=== PATIENT | male | born 1940 | race Caucasian/White ===

== ENCOUNTER 2017-05-30 20:13 | Inpatient (IN) | payer OTHER, MEDICARE ==
[~2017-05-30] VITALS: Ht 162.6 cm; Wt 72.9 kg
--- NOTE | ~2017-05-30 | P ---
[facility] [place] [address] PROCEDURE REPORT Name: ERI GIRON JR Room #: 351-P ADM IN M.R.#: [id number] Admission: 05/30/17 Attend Phys: Eri Wilcox DO Discharge: Date of : 39 Report #: [id number] THIS REPORT FOR: //name// CC: Mathieu Torres DATE OF SERVICE: 06/01/2017 PROCEDURE PERFORMED: Flexible sigmoidoscopy. HISTORY OF PRESENT ILLNESS: The patient is a 77-year-old male with GI bleed, presented to [facility] initially with bright red blood per rectum. He had a colonoscopy done at that center, which showed a significant amount of fresh blood and clot of blood throughout the colon. No active bleeding was seen. His hemoglobin was 7.2 at the time of admission here on transfer. He has now received a total of 2 units of packed cells here yesterday. His hemoglobin at this time most recently was 7.9 at 12:10 today. He has had signs of recurrent bleeding. Yesterday, the patient underwent a CT arteriogram, which showed no evidence of active bleeding. A nuclear medicine bleeding scan was then performed. The initial scan was negative for any active bleeding; however, in an addendum bleeding site appears to be in the distal transverse colon or splenic flexure region. Therefore, plan is to perform a flexible sigmoidoscopy today. The patient was given several enemas on the floor. DESCRIPTION OF PROCEDURE: The risks and benefits of the procedure were explained to the patient and his family, those risks including but not limited to bleeding, perforation and the risk of sedation. They understood these risks and gave informed consent. Sedation was given using propofol per anesthesia. Next, a digital rectal exam was initially performed, which was normal. Next, using a standard Fujinon colonoscope, the scope was placed in the patient's anus and advanced under direct vision into the transverse colon. The overall prep was poor in most areas. Multiple washings and aspirations were performed. There was a mix of bright red blood and some old blood throughout the left colon with multiple diverticula noted throughout this region. When the scope was advanced into the transverse colon, only old dark black blood was noted. I spent approximately 30-45 minutes washing the splenic flexure area as well as the left colon. There was no active bleeding, but again there were signs of bright red blood in this area. Again, I spent long period of time looking at multiple diverticula within this region. There was no active bleeding from a single diverticulum noted. At this point, the scope was slowly withdrawn. The rectal mucosa was normal. The scope was then withdrawn and the procedure terminated. The patient tolerated the procedure well. [address] [address] PROCEDURE REPORT Name: ERI GIRON JR Room #: 351-P [facility] IN .R.#: [id number] Admission: 05/30/17 Attend Phys: Eri Wilcox DO Discharge: Date of : 39 Report #: [id number] IMPRESSION: Recurrent gastrointestinal bleed likely secondary to a diverticular bleed near the splenic flexure area. Multiple diverticula were noted throughout this entire segment again despite spending a large amount of time with multiple washings and aspirations, the actual bleeding site was not seen. It appears it may have stopped or slowed dramatically at this point. I then had a long discussion with the patient's daughter. The plan at this point is to observe the patient closely. If he has signs of significant active rebleed, then Dr. Hatch, Interventional Radiology, may be involved with an arteriogram at that point. In the meantime, we will start clear liquids and continue to monitor his hemoglobin closely. Thank you for allowing me to participate in his care. <ELECTRONICALLY SIGNED> By: Henrry Mccormick MD 06/02/17 2110 1515 0455 Henrry Mccormick MD /nt
--- NOTE | ~2017-05-30 | HC ---
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 He was noted to have significant bloody stools with acute blood loss anemia and drop in hemoglobin. He underwent flexible sigmoidoscopy, which revealed a likely diverticular bleed. He has been monitored regarding hypokalemia as well as his history of hypertension. He does have a probable underlying dementia, was seen by Neurology and is actually in the process of an outpatient neurologic evaluation through the [facility]. He apparently had an EEG and brain MRI completed and the plan is for neuropsych testing on 06/25/2017. The patient is noted to have medical complexity with generalized debilitation. We are seeing him in rehabilitation medicine consultation. Cardiology is involved as well and they are monitoring regarding his hypertension and is on statin therapy for his hyperlipidemia. PAST MEDICAL HISTORY: Includes hyperlipidemia, hypertension, GERD. PAST SURGICAL HISTORY: Corneal transplants and retina repair. ALLERGIES: None. MEDICATIONS: Please see the full medication listing. 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 REVIEW OF SYSTEMS: Did not offer any current complaints of chest pain, shortness of breath, abdominal discomfort. No focal extremity pain complaints. PHYSICAL EXAMINATION: GENERAL: The patient is a pleasant 77-year-old white male, in no obvious distress. VITAL SIGNS: Last recorded temperature is 98.6, pulse 74, respirations 18, blood pressure 163/89. NEUROLOGIC: The patient is alert, he follows basic 1 step commands. There is some latency to his responses. Facies are symmetric. He has functional range of motion of both upper extremities with strength grade 4-/5. DTRs are trace to 1. Lower extremities, no focal calf swelling, functional range of motion with strength grade 4-/5. DTRs are trace to 1. [address] [address] CONSULTATION Name: ERI GIRON JR Room #: 351-P [facility] IN [facility].#: [id number] Admission: 05/30/17 Attend Phys: Eri Wilcox DO Discharge: 06/05/17 Date of : 39 Report #: [id number] ASSESSMENT: A 77-year-old white male with the following problem list: 1. Medical complexity with generalized debilitation. 2. Hematochezia with acute blood loss anemia. 3. Likely diverticular bleed. 4. Hypokalemia. 5. Hypertension. 6. Hyperlipidemia. 7. Probable underlying dementia with outpatient neurologic evaluation currently in process. PLAN: Therapies to evaluate. We will be glad to assist regarding rehab therapy needs and we will follow along to see how he does with the therapy evaluations. <ELECTRONICALLY SIGNED> By: Mathieu Irby MD 06/08/17 1408 1044 2135 Mathieu Irby MD /nt
--- NOTE | ~2017-05-30 | H ---
[facility] [place] [address] HISTORY AND PHYSICAL Name: ERI GIRON JR Room #: 351-P ADM IN M.R.#: [id number] Admission: 05/30/17 Attend Phys: Eri Wilcox DO Discharge: Date of : 39 Report #: [id number] THIS REPORT FOR: //name// CC: Eri Cm ATTENDING PHYSICIAN: Dr. Stover. PRIMARY CARE PHYSICIAN: Dr. Ciro Cm. CHIEF COMPLAINT: Rectal bleeding. HISTORY OF PRESENT ILLNESS: The patient is a 77-year-old male who was initially admitted at [facility]. He had a few falls at home and has been reporting blood in his stools at least 8-9 times prior to his admission there. His initial hemoglobin was 10 on arrival. He ended up being seen by a surgeon there as no GI was available, and his colonoscopy showed large amount of blood mixed with clots throughout the entire colon, but no source of active bleeding was found. He did not have any further bowel movements since the colonoscopy. He has had a negative colonoscopy 5 years prior. He is not on any blood thinners. Today when he was up to go to the bathroom at [facility], he became very dizzy, and he was orthostatic with a blood pressure of 88/47. His hemoglobin has continued to drop despite no further episodes of bleeding. His hemoglobin trended down from 9 this morning to 8.4 to 7.2. It was at that point, they decided to go ahead and transfer him to the facility where he can be seen by GI. With his fall at home, he says he did hit his head, but he did not lose any consciousness. He has never had any GI bleeding problems in the past. PAST MEDICAL HISTORY: Hyperlipidemia, hypertension, GERD. PAST SURGICAL HISTORY: Corneal transplants and retina repair. ALLERGIES: None. HOME MEDICATIONS: Flomax 0.4 mg p.o. daily, Lipitor 80 mg p.o. daily, diltiazem 360 mg p.o. daily, lisinopril 20 mg p.o. daily, omeprazole 20 mg p.o. daily. SOCIAL HISTORY: The patient lives alone. He is normally independent and gets around using a walker. He denies any tobacco use. He does drink one alcoholic beverage per day, usually beer. FAMILY HISTORY: Significant for CVA, but no history of bleeding or clotting disorders. REVIEW OF SYSTEMS: His daughter states that she has noticed some recent confusion and feeling off balance, so he had an outpatient neurology evaluation that was done a few weeks ago. He did have an MRI of his brain as well as an [facility] [address] [place] [address] HISTORY AND PHYSICAL Name: ERI GIRON JR Room #: 351-P [facility] IN ..#: [id number] Admission: 05/30/17 Attend Phys: Eri Wilcox DO Discharge: Date of : 39 Report #: [id number] EEG, and she has not been called about those results, but they plan to follow up with Neurology next month. All other 12-point review of systems was reviewed with the patient, otherwise negative unless stated in the HPI. PHYSICAL EXAMINATION: GENERAL: The patient is an alert male, in no acute distress. VITAL SIGNS: Temperature is 99.7, heart rate 69, respirations 18, blood pressure 129/62, oxygen 99% on room air. HEENT: PERRLA. Sclerae are nonicteric. Conjunctivae are pale. Oral mucosa is pink and moist. NECK: Supple, no JVD noted. CARDIAC: Normal S1, S2. No murmurs, rubs or gallops. RESPIRATORY: Breath sounds are clear bilaterally. No wheezing or rhonchi. Breathing is nonlabored. ABDOMEN: Soft, round, nontender with positive bowel sounds. VASCULAR: No edema noted. Pedal pulses are 2+. NEUROLOGIC: The patient is alert and oriented x 3. Speech is clear. He is moving all extremities equally. No focal weakness noted. MUSCULOSKELETAL: He does have some right shoulder pain with arm raise and does have decreased range of motion, which he says is due to chronic pain. SKIN: Intact. No rashes or lesions. He is very pale. LABORATORY DATA AND DIAGNOSTICS: Blood work at [facility] showed a WBC of 8.0, hemoglobin 7.2 and platelets 267. Sodium 137, potassium 4.0, BUN 34, creatinine 1.0. Glucose 124. LFTs are within normal limits. INR is 1.0. UA, negative leukocyte esterase. Chest x-ray is negative. CT of the head is negative for acute findings. There was some mild right maxillary sinusitis. ASSESSMENT AND PLAN: 1. Hematochezia. The patient did undergo a colonoscopy, which did show a large amount of blood, but no active source of bleeding was found. He was sent here for further GI evaluation. He has not had any further episodes today post-colonoscopy. We will check serial H and H levels and transfuse blood if hemoglobin is less than 7. We will also order a tagged red blood cell scan in the morning. GI is consulted, type and screen. 2. Acute blood loss anemia. Check a stat H and H level now. Transfuse if hemoglobin is less than 7 and then follow serial H and H levels q.6 hours. 3. Hypertension. Blood pressure is stable. Hold home meds while gastrointestinal bleeding. 4. Hyperlipidemia. Hold home medications while n.p.o. 5. Code status: The patient is a full code. 6. Deep venous thrombosis prophylaxis, place sequential compression devices. [facility] [address] [place] [address] HISTORY AND PHYSICAL Name: ERI GIRON JR Room #: 351-P ADM IN .R.#: [id number] Admission: 05/30/17 Attend Phys: Eri Wilcox DO Discharge: Date of : 39 Report #: [id number] We will continue to follow the patient closely throughout the hospitalization and make changes based on clinical status. <ELECTRONICALLY SIGNED> By: SERGE Blount 06/04/17 0901 0632 0721 SERGE Blount /nt
[2017-05-30 22:40] VITALS: BP 121/49
[2017-05-30] MEDS ORDERED: LIPITOR80 MG PO (22:45)
[2017-05-30] MEDS ORDERED: DILTIAZEM ER360 MG PO (22:45)
[2017-05-30] MEDS ORDERED: OMEPRAZOLE 20 M20 M1 PO (22:46)
[2017-05-30] MEDS ORDERED: FLOMAX0.4 MG PO (22:46)
[2017-05-30] MEDS ORDERED: LISINOPRIL20 MG PO (22:47)
[2017-05-30 23:53] LABS: HEMATOCRIT 21.7 % (42.0-52.0); HEMOGLOBIN 7.4 gm/dL (14.0-18.0)
[2017-05-31] VITALS (8 sets, daily range): BP systolic 108–151; BP diastolic 58–86
[2017-05-31 06:36] LABS: HEMOGLOBIN 7.1 gm/dL (14.0-18.0)
[2017-05-31 16:09] LABS: HEMATOCRIT 23.2 % (42.0-52.0)
[2017-05-31 17:46] LABS: HEMATOCRIT 23.2 % (42.0-52.0); HEMOGLOBIN 7.8 gm/dL (14.0-18.0)
[2017-06-01 00:20] LABS: HEMATOCRIT 23.1 % (42.0-52.0); HEMOGLOBIN 7.9 gm/dL (14.0-18.0)
[2017-06-01 04:30] VITALS: BP 148/86
[2017-06-01 06:41] LABS: HEMATOCRIT 21.6 % (42.0-52.0); HEMOGLOBIN 7.4 gm/dL (14.0-18.0)
[2017-06-01 07:12] VITALS: BP 153/90
[2017-06-01 10:23] LABS: URINE BILIRUBIN NEGATIVE (Negative); URINE BLOOD NEGATIVE (Negative); URINE CLARITY CLEAR; URINE COLOR YELLOW; URINE GLUCOSE-RANDOM* NEGATIVE (Negative); URINE KETONES TRACE (Negative); URINE LEUKOCYTES-REFLEX NEGATIVE (Negative); URINE NITRITE-REFLEX NEGATIVE (Negative); URINE PROTEIN (DIPSTICK) NEGATIVE (Negative); URINE SPECIFIC GRAVITY 1.015 (1.005-1.035); URINE UROBILINOGEN 0.2 E.U./dl (0.2-1.0)
[2017-06-01 10:42] LABS: ALBUMIN 2.3 g/dL (3.4-5.0); CALCIUM 7.1 mg/dL (8.5-10.1); CREATININE 0.7 mg/dL (0.7-1.3); POTASSIUM 3.3 mmol/L (3.5-5.1); TOTAL BILIRUBIN 0.6 mg/dL (<0.1-1.0); TOTAL PROTEIN 4.1 g/dL (6.4-8.2)
[2017-06-01 11:12] LABS: TSH 0.54 uIU/mL (0.358-3.740)
[2017-06-01 11:45] VITALS: BP 146/89
[2017-06-01 12:19] LABS: HEMATOCRIT 22.5 % (42.0-52.0); HEMOGLOBIN 7.9 gm/dL (14.0-18.0)
[2017-06-01 15:37] VITALS: BP 166/64
[2017-06-01 19:00] LABS: HEMATOCRIT 22.7 % (42.0-52.0); HEMOGLOBIN 7.9 gm/dL (14.0-18.0)
[2017-06-01 19:14] VITALS: BP 166/94
[2017-06-01 23:50] VITALS: BP 172/87
[2017-06-02 03:20] VITALS: BP 169/83
[2017-06-02 06:37] LABS: BASOPHILS 0.3 % (0.0-2.0); EOSINOPHILS 7.2 % (0.0-3.0); HEMATOCRIT 20.9 % (42.0-52.0); HEMOGLOBIN 7.4 gm/dL (14.0-18.0); MCH 30.9 pg (26.0-34.0); MCHC 35.1 g/dL (28.0-37.0); MONOCYTES 8.7 % (1.0-8.0); PLATELET COUNT 205 thou/uL (150-400); POLYS 61.8 % (36.0-66.0); RBC 2.38 mil/uL (4.50-6.00); RDW 14.3 % (10.5-14.5); WBC 8.1 thou/uL (4.0-11.0)
[2017-06-02 06:50] LABS: CALCIUM 7.3 mg/dL (8.5-10.1); CREATININE 0.6 mg/dL (0.7-1.3)
[2017-06-02 06:53] LABS: POTASSIUM 2.9 mmol/L (3.5-5.1)
[2017-06-02 09:04] VITALS: BP 149/84
[2017-06-02 12:03] VITALS: BP 152/84
[2017-06-02 15:37] VITALS: BP 121/74
[2017-06-02 17:26] LABS: HEMATOCRIT 21.7 % (42.0-52.0); HEMOGLOBIN 7.5 gm/dL (14.0-18.0); MCH 30.7 pg (26.0-34.0); MCHC 34.7 g/dL (28.0-37.0); MCV 88.6 fL (80.0-100.0); RBC 2.45 mil/uL (4.50-6.00); RDW 14.6 % (10.5-14.5); WBC 7.3 thou/uL (4.0-11.0)
[2017-06-02 20:00] VITALS: BP 107/88
[2017-06-03 04:30] VITALS: BP 110/66
[2017-06-03 05:37] LABS: ABSOLUTE NEUTROPHILS 4.5 thou/uL (1.4-8.2); BASOPHILS 0.4 % (0.0-2.0); EOSINOPHILS 6.5 % (0.0-3.0); HEMATOCRIT 22.3 % (42.0-52.0); HEMOGLOBIN 7.7 gm/dL (14.0-18.0); LYMPHOCYTES 27.9 % (24.0-44.0); MCH 30.6 pg (26.0-34.0); MCHC 34.4 g/dL (28.0-37.0); MONOCYTES 8.7 % (1.0-8.0); PLATELET COUNT 243 thou/uL (150-400); POLYS 56.5 % (36.0-66.0); RBC 2.51 mil/uL (4.50-6.00); RDW 14.8 % (10.5-14.5); WBC 7.9 thou/uL (4.0-11.0)
[2017-06-03 05:48] LABS: CALCIUM 7.8 mg/dL (8.5-10.1); CREATININE 0.6 mg/dL (0.7-1.3); POTASSIUM 4.1 mmol/L (3.5-5.1)
[2017-06-03 08:18] VITALS: BP 158/95
[2017-06-03 11:40] VITALS: BP 142/71
[2017-06-03 17:23] VITALS: BP 135/72
[2017-06-03 20:00] VITALS: BP 124/79
[2017-06-04 00:08] VITALS: BP 170/82
[2017-06-04 03:46] VITALS: BP 156/86
[2017-06-04 07:50] LABS: ABSOLUTE NEUTROPHILS 4.1 thou/uL (1.4-8.2); BASOPHILS 0.4 % (0.0-2.0); EOSINOPHILS 6.2 % (0.0-3.0); HEMATOCRIT 22.4 % (42.0-52.0); HEMOGLOBIN 7.6 gm/dL (14.0-18.0); LYMPHOCYTES 24.5 % (24.0-44.0); MCH 30.1 pg (26.0-34.0); MCHC 33.9 g/dL (28.0-37.0); MCV 88.8 fL (80.0-100.0); MONOCYTES 10.1 % (1.0-8.0); PLATELET COUNT 279 thou/uL (150-400); POLYS 58.8 % (36.0-66.0); RBC 2.52 mil/uL (4.50-6.00); RDW 14.5 % (10.5-14.5)
[2017-06-04 08:03] LABS: CALCIUM 8.1 mg/dL (8.5-10.1); CREATININE 0.7 mg/dL (0.7-1.3); POTASSIUM 3.9 mmol/L (3.5-5.1)
[2017-06-04 08:16] VITALS: BP 163/89
[2017-06-04 13:59] VITALS: BP 154/84
[2017-06-04 16:00] VITALS: BP 145/82
[2017-06-04 19:55] VITALS: BP 138/67
[2017-06-05 04:45] LABS: ABSOLUTE NEUTROPHILS 4.4 thou/uL (1.4-8.2); BASOPHILS 0.5 % (0.0-2.0); EOSINOPHILS 6.1 % (0.0-3.0); HEMOGLOBIN 7.2 gm/dL (14.0-18.0); LYMPHOCYTES 24.3 % (24.0-44.0); MCH 30.1 pg (26.0-34.0); MCHC 34.1 g/dL (28.0-37.0); MCV 88.3 fL (80.0-100.0); MONOCYTES 9.1 % (1.0-8.0); PLATELET COUNT 289 thou/uL (150-400); RBC 2.38 mil/uL (4.50-6.00); RDW 14.3 % (10.5-14.5); WBC 7.3 thou/uL (4.0-11.0)
[2017-06-05 05:03] LABS: CALCIUM 8.1 mg/dL (8.5-10.1); CREATININE 0.8 mg/dL (0.7-1.3); POTASSIUM 3.5 mmol/L (3.5-5.1)
[2017-06-05 05:10] VITALS: BP 126/64
[2017-06-05 08:00] VITALS: BP 148/85
[2017-06-05 12:00] VITALS: BP 111/61
[2017-06-05 13:50] LABS: HEMATOCRIT 22.1 % (42.0-52.0); HEMOGLOBIN 7.5 gm/dL (14.0-18.0)
[2017-06-05 16:00] VITALS: BP 123/56
== END 2017-06-05 18:02 | DRG 377 ==
LOC: 3W 20:13
PROVIDERS: Family Medicine; Internal Medicine Gastroenterology; Nurse Practitioner; Nurse Practitioner Acute Care; Psychiatry & Neurology Neurology
PROC: 30233N1 Transfusion of Nonautologous Red Blood Cells into Peripheral Vein, Percutaneous Approach (ICD-10-PCS; principal; 2017-05-31)
PROC: 0DJD8ZZ Inspection of Lower Intestinal Tract, Via Natural or Artificial Opening Endoscopic (ICD-10-PCS; 2017-06-01)
DX: K57.31 Diverticulosis of large intestine without perforation or abscess with bleeding (principal); E43 Unspecified severe protein-calorie malnutrition; D62 Acute posthemorrhagic anemia; I10 Essential (primary) hypertension; E78.00 Pure hypercholesterolemia, unspecified; K21.9 Gastro-esophageal reflux disease without esophagitis; K59.00 Constipation, unspecified; F03.90 Unspecified dementia, unspecified severity, without behavioral disturbance, psychotic disturbance, mood disturbance, and anxiety; N40.0 Benign prostatic hyperplasia without lower urinary tract symptoms; E87.6 Hypokalemia; Z94.7 Corneal transplant status; Z79.899 Other long term (current) drug therapy; Z91.013 Allergy to seafood; Z82.3 Family history of stroke
CPT/HCPCS: 10879; 62110; 70005

== ENCOUNTER 2017-06-05 10:42 | Inpatient (IN) | payer OTHER, MEDICARE ==
[~2017-06-05] VITALS: Ht 162.6 cm; Wt 72.6 kg
--- NOTE | ~2017-06-05 | PLAN ---
[facility] [place] [address] REHAB UNIT PLAN OF CARE Name: ERI GIRON Room #: 512-P ADM IN M.R.#: [id number] Admission: 06/05/17 Attend Phys: Mathieu Irby MD Discharge: Date of : 39 Report #: [id number] THIS REPORT FOR: //name// CC: Mathieu Cm DATE OF SERVICE: 06/07/2017 SUBJECTIVE: The patient was seen back today in followup. He was in no distress. Temperature 36.8, pulse 66, respirations 16, blood pressure 110/50. He is alert. No focal calf swelling. He is working in therapies with transfers, contact guard, gait min assist 200 feet without a device. In occupational therapy, upper body dressing, supervision with lower body dressing, min assist. In speech therapy, he has mild to moderate comprehensive deficits. ASSESSMENT: 1. Medical complexity with generalized debilitation. 2. Gait instability with decreased balance. 3. Functional mobility and ADL deficits. 4. Hematochezia with acute blood loss anemia. 5. Likely diverticular bleed. 6. Electrolyte abnormalities. 7. Hypertension. 8. Hyperlipidemia. 9. Probable underlying dementia with outpatient neurologic evaluation currently in process. PLAN: The overall plan of care is based on the preadmission screen, post-admission physician evaluation and information garnered from therapy assessments. 1. Estimated length of stay is probably at least 7-10 days, potentially longer if needed. 2. Medical prognosis is reasonably good. 3. Anticipated interventions includes the interdisciplinary acute inpatient rehabilitation program with the goal of maximizing his functional independence, so he can hopefully return back to his prior living situation. PT and OT are involved as well as speech therapy and we are having the medical consultants continue to follow while he is in the rehab kohli. Rehab nursing is assisting regarding medication management, skin care, prophylaxis, bowel and bladder issues and nursing education. Case management is involved. We have the interdisciplinary acute rehabilitation team working with him. 4. Anticipated functional outcomes would be for him to improve as far as his functional mobility and gait and ADLs as well as medical stability to return back to his prior living situation. Speech therapy is working with him regarding cognitive issues as well. 5. Discharge destination would be back to the [place] setting [place] [address] REHAB UNIT PLAN OF CARE Name: GIRONERI Room #: 512-P [facility] IN [facility]#: [id number] Admission: 06/05/17 Attend Phys: Mathieu Irby MD Discharge: Date of : 39 Report #: [id number] house alone. 6. Expected therapy by discipline includes PT, OT and speech 1 hour per day each 5 days a week throughout the duration of the acute inpatient rehabilitation stay. <ELECTRONICALLY SIGNED> By: Mathieu Irby MD 06/08/17 1408 0851 2219 Mathieu Irby MD /PMT
--- NOTE | ~2017-06-05 | H ---
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 He was noted to have significant bloody stools with acute blood loss anemia and drop in hemoglobin. He underwent flexible sigmoidoscopy, which revealed a likely diverticular bleed. He has been monitored regarding hypokalemia as well as hypertension. He does have a history of a probable underlying dementia, was seen by Neurology and actually had been in the process of an outpatient neurologic evaluation through the [facility]. He apparently had an EEG and a brain MRI completed and the plan is for neuro psychometric testing on 06/25/2017. He was noted to have medical complexity with generalized debilitation. Cardiology has been involved monitoring hypertension and he has been on statin therapy for his hyperlipidemia. Gastroenterology has been monitoring his blood counts. He was noted to have a significant decline functionally from his premorbid status and has been admitted now for acute in-hospital inpatient rehabilitation. PAST MEDICAL HISTORY: Includes hyperlipidemia, hypertension, and GERD. PAST SURGICAL HISTORY: Includes corneal transplants and retina repair. ALLERGIES: None. MEDICATIONS: Please see the full medication listing. These are noted to include his vitamins, herbals and supplements. 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 He did not utilize gait aids per my review. REVIEW OF SYSTEMS: No current complaints of chest pain, shortness of breath, abdominal discomfort. No focal extremity pain complaints. PHYSICAL EXAMINATION: GENERAL: The patient was seen earlier. VITAL SIGNS: Last recorded temperature 98.4, pulse 74, respirations 20, blood pressure 136/68. Noted to have some stress incontinence. HEENT: Facies appeared symmetric. [facility] [address] [place] [address] HISTORY AND PHYSICAL Name: MACKERI JR Room #: 512-P [facility] IN [facility].#: [id number] Admission: 06/05/17 Attend Phys: Mathieu Irby MD Discharge: Date of : 39 Report #: [id number] CHEST: Sounded clear to auscultation. CARDIOVASCULAR: Regular rate and rhythm. ABDOMEN: Bowel sounds positive, nontender. GENITOURINARY AND RECTAL: Deferred. NEUROLOGIC: Functional range of motion of both upper extremities with strength grade 4-/5. DTRs are trace to 1. Lower extremities, no focal calf swelling, functional range of motion with strength grade 4-/5. DTRs are trace to 1. He has been getting up with the therapies prior to admission, needing min assist for standing and actually the last time he ambulated he was needing mod assist to ambulate short distances without a device. He does have some deficits noted specifically with dynamic standing balance. ASSESSMENT: A 77-year-old white male with the following problem list: 1. Medical complexity with generalized debilitation. 2. Gait instability with decreased balance. 3. Functional mobility and ADL deficits. 4. Hematochezia with acute blood loss anemia. 5. Likely diverticular bleed. 6. Electrolyte abnormalities. 7. Hypertension. 8. Hyperlipidemia. 9. Probable underlying dementia with outpatient neurologic evaluation currently in process. PLAN: The patient is admitted for acute in-hospital inpatient rehabilitation. From a postadmission physician evaluation perspective, there are no relevant changes since the preadmission screening. Please see the above review of prior and current medical and functional conditions and comorbidities. Please see the patient's previous and current functional status. As far as risk of complications, the patient has multiple medical comorbidities as noted above. Initial plan of care involves the interdisciplinary acute inpatient rehabilitation program with the goal of maximizing his functional independence, so he can hopefully return back to his prior living situation. Measurable functional goals would be for him to become modified independent with transfers, mobility and ADL issues and to utilize a gait aid, if it is warranted. Prognosis is reasonably good with estimated length of stay probably at least 5-10 days and likely longer if needed. Potential barriers would include his multiple medical comorbidities and decreased functional status. The patient's diagnosis is appropriate. He meets the medical necessity criteria and we will have the multiple sap portal consultant physicians continue to follow. Gastroenterology is especially following regarding his blood counts and monitoring of anemia. The multiple other sap portal consultant physicians will be asked to follow while he is on the rehab kohli as well. He does have the tolerance for an [facility] [address] [place] [address] HISTORY AND PHYSICAL Name: ERI GIRON Room #: 512-P [facility] IN M.R.#: [id number] Admission: 06/05/17 Attend Phys: Mathieu Irby MD Discharge: Date of : 39 Report #: [id number] acute in-hospital inpatient rehabilitation stay and has appropriate discharge goals back to the home setting. <ELECTRONICALLY SIGNED> By: Mathieu Irby MD 06/06/17 1051 0821 0848 Mathieu Irby MD /[facility]
--- NOTE | ~2017-06-05 | HC ---
[facility] [place] [address] CONSULTATION Name: ERI GIRON JR Room #: 512-P [facility] IN ..#: [id number] Admission: 06/05/17 Attend Phys: Mathieu Irby MD Discharge: Date of : 38 Report #: [id number] THIS REPORT FOR: //name// CC: Mathieu Cm DATE OF SERVICE: 06/09/2017 NEUROBEHAVIORAL STATUS EXAM ATTENDING PHYSICIAN: Mathieu Irby MD COFFEE MAKER: Toro Emanuel, PhD CLINICAL PRESENTATION: The patient is a 77-year-old male admitted for comprehensive inpatient rehabilitation program to improve functional mobility, activities of daily living and self-care and mental status secondary to deficits from medical complexity and generalized debility. He is reported to have had a significant blood loss and anemia, which led to a fall and need for inpatient rehabilitation. Prior to this admission, th patient had been undergoing a neurological workup for dementia. He had completed a MRI and EEG and had been waiting a neuropsychological testing to clarify his cognitive status. His assessment on admission to rehab includes gait instability with decreased balance, functional mobility and activities of daily living deficits, hematochezia with acute blood loss anemia, diverticular bleed, electrolyte abnormalities, hypertension, hyperlipidemia, possible underlying dementia. A complete description of his medical condition and history and medications can be found in his medical record. Neuropsychological consultation was requested to provide assistance in the assessment of cognitive and emotional status and to provide recommendations and services. Prior to this most recent hospitalization, he was living independently in his own home. The patient is reported to have been driving and managing instrumental activities of daily living. However, his family indicates concern about his level of functioning to the extent that followup neurological evaluation was underway. The patient has 2 children. 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 His is . He has a medical billing and coding instructor that had been keeping close tabs on his level of functioning. TECHNIQUES UTILIZED: Clinical interview, review of medical records, staff consultation and behavioral observation, Mini-Mental Status exam 2 standard version and clock drawing and family interview - son and daughter. [facility] [address] [place] [address] CONSULTATION Name: ERI GIRON Room #: 512-P [facility] IN M.R.#: [id number] Admission: 06/05/17 Attend Phys: Mathieu Irby MD Discharge: Date of : 38 Report #: [id number] EXAMINATION FINDINGS: The patient was alert and cooperative with the assessment. He accurately described the events leading to his hospitalization. There is no evidence of aphasia. His thoughts are logical and goal-oriented. Thought content was within normal limits. He does not report auditory or visual hallucinations. He describes his symptoms to include difficulty with memory. He does not report anxiety, depression or word finding deficits. The patient is reported to have 1-2 drinks of alcohol daily. Prior to his admission, his family indicates that he had been having problems with disorientation to time and forgetting appointments. Spoiled food was noted in his refrigerator. Additionally, he is described as less responsive to social pragmantics, e.g., dressing and choice of clothing poor. His performance on the MMSE 2 brief version is extremely low with a raw score of 9/16. He was 3/3 for initial registration, 3/5 for orientation to time and 3/[address]. He was 0/3 for immediate recall of 3 items after a brief time delay and distraction. His performance on the MMSE 2 standard version was moderate to severely impaired with a raw score of 20 of 30 and a T score of 20, which is less than 1%. He was 3/5 for serial sevens, 2/2 for naming, 1/1 for repetition, 3/3 for auditory comprehension, 1/1 for being able to read and follow single command and able to write a sentence. However, he could not copy a simple geometric design. The patient also was unable to draw a clock, place the numbers in the clock or conceptualize how time would be managed. The patient is presenting with severe deficits in immediate recall, concentration and visual spatial organization. 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 DIAGNOSTIC IMPRESSION: Major neurocognitive disorder (dementia), unspecified, with decreased insight - extent to be determined. RECOMMENDATIONS: The patient will benefit from further neuropsychological testing to clarify the extent of neurocognitive deficits and his dementia. A followup evaluation upon discharge is indicated. Following discharge, the patient should discontinue driving in order to maintain safety. Assistance with medical, financial and nutritional management is also suggested. Thank you very much for allowing me to provide the consultation on this patient. <ELECTRONICALLY SIGNED> By: Toro Emanuel, PhD 06/10/17 [id number] Toro Emanuel, PhD /nt
[~2017-06-05 10:42] MED LIST: DILTIAZEM ER360 MG PO; FLOMAX0.4 MG PO; LIPITOR80 MG PO; LISINOPRIL20 MG PO; OMEPRAZOLE 20 M20 M1 PO
[2017-06-05 18:20] VITALS: BP 140/64
[2017-06-05 20:15] VITALS: BP 136/68
[2017-06-06 04:21] LABS: CALCIUM 7.9 mg/dL (8.5-10.1); CREATININE 0.8 mg/dL (0.7-1.3); POTASSIUM 3.8 mmol/L (3.5-5.1)
[2017-06-06 05:16] LABS: HEMATOCRIT 20.8 % (42.0-52.0); MCH 29.7 pg (26.0-34.0); MCHC 33.6 g/dL (28.0-37.0); MCV 88.3 fL (80.0-100.0); RBC 2.36 mil/uL (4.50-6.00); RDW 14.5 % (10.5-14.5); WBC 8.2 thou/uL (4.0-11.0)
[2017-06-06 08:10] VITALS: BP 149/81
[2017-06-06 11:45] LABS: % SATURATION 5 % (20-39); IRON 12 ug/dL (65-175); TIBC 235 ug/dL (250-450)
[2017-06-06 12:12] LABS: FOLIC ACID 12.9 ng/mL (8.6-58.9)
[2017-06-06 19:15] VITALS: BP 100/35
[2017-06-07 04:49] VITALS: BP 110/50
[2017-06-07 08:51] VITALS: BP 125/58
[2017-06-07 15:45] LABS: HEMATOCRIT 18.6 % (42.0-52.0)
[2017-06-07 15:46] LABS: HEMOGLOBIN 6.3 gm/dL (14.0-18.0)
[2017-06-07 20:02] VITALS: BP 114/50; BP 129/56
[2017-06-07 20:51] VITALS: BP 115/62
[2017-06-08 06:47] LABS: HEMATOCRIT 23.7 % (42.0-52.0); HEMOGLOBIN 8.1 gm/dL (14.0-18.0)
[2017-06-08 10:07] VITALS: BP 130/72
[2017-06-08 20:11] VITALS: BP 108/61
[2017-06-09 07:54] VITALS: BP 124/63
[2017-06-09 19:51] VITALS: BP 118/55
[2017-06-10 03:14] LABS: ABSOLUTE NEUTROPHILS 6.2 thou/uL (1.4-8.2); BASOPHILS 0.6 % (0.0-2.0); EOSINOPHILS 4.4 % (0.0-3.0); HEMATOCRIT 24.8 % (42.0-52.0); HEMOGLOBIN 8.3 gm/dL (14.0-18.0); LYMPHOCYTES 23.8 % (24.0-44.0); MCH 29.7 pg (26.0-34.0); MCHC 33.6 g/dL (28.0-37.0); MCV 88.3 fL (80.0-100.0); MONOCYTES 11.7 % (1.0-8.0); PLATELET COUNT 419 thou/uL (150-400); POLYS 59.5 % (36.0-66.0); RDW 15.6 % (10.5-14.5); WBC 10.5 thou/uL (4.0-11.0)
[2017-06-10 03:37] LABS: CALCIUM 8.1 mg/dL (8.5-10.1); CREATININE 0.8 mg/dL (0.7-1.3); POTASSIUM 4.1 mmol/L (3.5-5.1)
[2017-06-10 08:00] VITALS: BP 150/67
[2017-06-10 21:14] VITALS: BP 107/48
[2017-06-11 05:47] LABS: ABSOLUTE NEUTROPHILS 5.5 thou/uL (1.4-8.2); BASOPHILS 0.6 % (0.0-2.0); EOSINOPHILS 5.8 % (0.0-3.0); HEMATOCRIT 25.1 % (42.0-52.0); HEMOGLOBIN 8.4 gm/dL (14.0-18.0); LYMPHOCYTES 22.9 % (24.0-44.0); MCH 29.6 pg (26.0-34.0); MCHC 33.4 g/dL (28.0-37.0); MCV 88.8 fL (80.0-100.0); MONOCYTES 10.8 % (1.0-8.0); PLATELET COUNT 432 thou/uL (150-400); POLYS 59.9 % (36.0-66.0); RBC 2.83 mil/uL (4.50-6.00); RDW 15.6 % (10.5-14.5); WBC 9.2 thou/uL (4.0-11.0)
[2017-06-11 05:59] LABS: CALCIUM 7.9 mg/dL (8.5-10.1); CREATININE 0.9 mg/dL (0.7-1.3); MAGNESIUM 2.3 mg/dL (1.8-2.4)
[2017-06-11 08:00] VITALS: BP 134/77
[2017-06-11 20:03] VITALS: BP 119/62
[2017-06-12 08:00] VITALS: BP 135/54
[2017-06-12 08:54] LABS: HEMATOCRIT 29.3 % (42.0-52.0); HEMOGLOBIN 9.8 gm/dL (14.0-18.0)
[2017-06-12 20:07] VITALS: BP 142/73
[2017-06-13 00:32] LABS: URINE BILIRUBIN NEGATIVE (Negative); URINE BLOOD NEGATIVE (Negative); URINE CLARITY CLEAR; URINE COLOR YELLOW; URINE GLUCOSE-RANDOM* NEGATIVE (Negative); URINE KETONES NEGATIVE (Negative); URINE LEUKOCYTES-REFLEX NEGATIVE (Negative); URINE NITRITE-REFLEX NEGATIVE (Negative); URINE PROTEIN (DIPSTICK) NEGATIVE (Negative); URINE SPECIFIC GRAVITY <= 1.005 (1.005-1.035); URINE UROBILINOGEN 0.2 E.U./dl (0.2-1.0)
[2017-06-13 07:49] LABS: HEMOGLOBIN 10.3 gm/dL (14.0-18.0)
[2017-06-13 08:30] VITALS: BP 140/72
[2017-06-13 19:43] VITALS: BP 122/63
[2017-06-14 06:58] LABS: HEMATOCRIT 27.6 % (42.0-52.0); HEMOGLOBIN 9.2 gm/dL (14.0-18.0)
[2017-06-14 07:55] VITALS: BP 136/74
[2017-06-14] MEDS ORDERED: COLACE100 MG PO (10:13)
[2017-06-14] MEDS ORDERED: ARTIFICIAL TEA1 EACH OPHTHALMIC (10:13)
[2017-06-14] MEDS ORDERED: MIRALAX17 GM PO (10:13)
[2017-06-14] MEDS ORDERED: HYDROCORTISONE30 G9 TOP (10:13)
[2017-06-14] MEDS ORDERED: PROTONIX40 M1 PO (10:13)
[2017-06-14] MEDS ORDERED: SENNA8.6 MG PO (10:13)
[2017-06-14] MEDS ORDERED: IRON325 PO (10:13)
[2017-06-14 11:03] VITALS: BP 136/74
[2017-06-14 20:00] VITALS: BP 121/71
[2017-06-15 05:57] LABS: HEMATOCRIT 28.7 % (42.0-52.0); HEMOGLOBIN 9.8 gm/dL (14.0-18.0)
[2017-06-15 08:20] VITALS: BP 132/72
[2017-06-15 14:16] VITALS: BP 136/74
[2017-06-15] MEDS ORDERED: PROTONIX40 M1 PO ×2 (16:02→16:49)
== END 2017-06-15 20:25 | disposition home health service (06) | DRG 948 ==
PROVIDERS: Family Medicine; Internal Medicine Cardiovascular Disease; Nurse Practitioner; Nurse Practitioner Acute Care; Physical Medicine & Rehabilitation
PROC: 30233N1 Transfusion of Nonautologous Red Blood Cells into Peripheral Vein, Percutaneous Approach (ICD-10-PCS; principal; 2017-06-07)
DX: R53.81 Other malaise (principal); D62 Acute posthemorrhagic anemia; K92.1 Melena; K92.2 Gastrointestinal hemorrhage, unspecified; R26.9 Unspecified abnormalities of gait and mobility; I10 Essential (primary) hypertension; E78.5 Hyperlipidemia, unspecified; F01.50 Vascular dementia, unspecified severity, without behavioral disturbance, psychotic disturbance, mood disturbance, and anxiety; K21.9 Gastro-esophageal reflux disease without esophagitis; Z60.2 Problems related to living alone; F03.90 Unspecified dementia, unspecified severity, without behavioral disturbance, psychotic disturbance, mood disturbance, and anxiety; D50.9 Iron deficiency anemia, unspecified; Z94.7 Corneal transplant status; Z91.013 Allergy to seafood
CPT/HCPCS: 10112